=== PATIENT | female | born 1995 | race Caucasian/White ===

== ENCOUNTER 2018-10-15 17:54 | Emergency (ER) | payer BC ==
[~2018-10-15] VITALS: Ht 167.6 cm; Wt 75.0 kg
[2018-10-15 17:58] VITALS: BP 124/88; TEMP 97.5
[2018-10-15] MEDS ORDERED: NATURE'S BLE1000 MCG (18:12)
[2018-10-15] MEDS ORDERED: LEVOXYL0.075 MG PO (18:12)
[2018-10-15] MEDS ORDERED: NORCO 325 MG-51 TAB PO (19:29)
[2018-10-15 21:55] VITALS: PULSE 71
== END 2018-10-15 21:55 | disposition home or self-care (01) ==
LOC: COL.ER 17:54
DX: S52.92XA Unspecified fracture of left forearm, initial encounter for closed fracture (principal); W17.89XA Other fall from one level to another, initial encounter; Y92.009 Unspecified place in unspecified non-institutional (private) residence as the place of occurrence of the external cause
CPT/HCPCS: J1170; J1885; J2405; J3010; Q4050